=== PATIENT | male | born 1950 | race Caucasian/White ===

== ENCOUNTER 2016-08-31 07:52 | Outpatient (CLI) | payer OTHER | END 2016-08-31 07:53 | disposition home or self-care (01) | DX: I10 Essential (primary) hypertension (principal); E78.5 Hyperlipidemia, unspecified ==

== ENCOUNTER 2016-12-24 15:15 | Outpatient (CLI) | payer OTHER | END 2016-12-24 15:16 | disposition home or self-care (01) | LOC: SC 15:15 | PROVIDERS: ATTEND Internal Medicine Pulmonary Disease | DX: R53.83 Other fatigue (principal) | CPT/HCPCS: 99203; 99212 ==

== ENCOUNTER 2017-01-17 21:06 | Outpatient (CLI) | payer OTHER | END 2017-01-17 21:07 | disposition home or self-care (01) | LOC: SC 21:06 | PROVIDERS: ATTEND Internal Medicine Pulmonary Disease | DX: R09.02 Hypoxemia (principal); R06.83 Snoring | CPT/HCPCS: 95810 ==

== ENCOUNTER 2017-01-31 08:33 | Outpatient (CLI) | payer OTHER | END 2017-01-31 08:34 | disposition home or self-care (01) | LOC: SC 08:33 | PROVIDERS: ATTEND Nurse Practitioner Family | DX: R09.02 Hypoxemia (principal); R06.83 Snoring | CPT/HCPCS: 99212; 99213 ==

== ENCOUNTER 2017-02-21 06:47 | Day surgery (SDC) | payer OTHER ==
[2017-02-21] MEDS ORDERED: LACTATED RINGERS 1,000 ML IV ONE ×2 (07:20→09:18)
[2017-02-21] MEDS ORDERED: MIDAZOLAM 2 MG/2 ML VIAL IVP ONE (08:42)
[2017-02-21] MEDS ORDERED: fentaNYL 100 MCG/2 ML VIAL IVP ONE (08:42)
--- NOTE | 2017-02-21 08:44 | HISTORY & PHYSICAL EXAMINATION ---
HPI - History of Present Illness HPI Comment/Other: Patient is here for screening colonoscopy; last colonoscopy in 2006, normal. High risk for Lake's and is also here for EGD. Current Meds: LIPITOR 10 MG TABS (ATORVASTATIN CALCIUM) Take one tablet by mouth at bedtime COREG 3.125 MG TABS (CARVEDILOL) Take one tablet by mouth twice a day TAMSULOSIN HCL 0.4 MG CAPS (TAMSULOSIN HCL) Take two capsule by mouth daily FINASTERIDE 5 MG TABS (FINASTERIDE) Take one tablet by mouth daily HYDROCHLOROTHIAZIDE 25 MG TABS (HYDROCHLOROTHIAZIDE) Take one tablet by mouth every morning PROTONIX 40 MG TBEC (PANTOPRAZOLE SODIUM) Take one tablet by mouth daily HYDROCODONE-ACETAMINOPHEN 5-325 MG TABS (HYDROCODONE-ACETAMINOPHEN) Take one to two tablets by mouth every six hours as needed for pain ASPIRIN EC 81 MG TBEC (ASPIRIN) Take one tablet by mouth daily Allergies: NKDA Past Medical History: Reviewed history from 02/19/2014 and no changes required: ESSENTIAL HYPERTENSION, BENIGN (ICD-401.1) (FDD93-Z66) HYPERLIPIDEMIA (ICD-272.4) (LVO13-X82.5) FASTING HYPERGLYCEMIA (ICD-790.6) OBESITY NOS (ICD-278.00) (YFH35-B90.9) BREAST MASS, LEFT (ICD-611.72) (SYS79-C28) HEARING LOSS (ICD-389.9) (SLU53-X84.90) SINUSITIS, CHRONIC (ICD-473.9) (XFV64-H64.9) HEADACHE (ICD-784.0) (GXF12-I83) BENIGN PROSTATIC HYPERTROPHY, WITH OBSTRUCTION (ICD-600.01) (WEA40-Y43.1) URTICARIA NEC (ICD-708.8) G E R D (ICD-530.81) (ICO06-G71.9) HIATAL HERNIA (ICD-553.3) (YLO26-Z27.9) Meralgia paresthetica (ICD-355.1) (AHJ73-B52.10) BACK PAIN, THORACIC REGION, CHRONIC (ICD-724.1) (YVZ00-X60.6) BACK PAIN, LUMBAR (ICD-724.2) (FKD98-S31.5) OSTEOARTHRITIS, CERVICAL SPINE (ICD-721.90) (LIZ44-J73.892) Past Surgical History: Reviewed history from 02/09/2014 and no changes required: Amputation of R little finger R shoulder repair Right ankle Right Knee Family History Summary: Reviewed history Last on 10/05/2016 and no changes required:12/14/2016 Father (lo.) - Has a father - Entered On: 02/09/2014 Mother (lo.) - Has a mother - Entered On: 02/09/2014 Mother (lo.) - Has Family History of Other Medical Problems - Diabetes - Entered On: 12/14/2016 General Comments - FH: Mother: CVA Uncle: CVA Social History: Reviewed history from 01/15/2014 and no changes required: Patient is a former smoker. . Risk Factors: Smoked Tobacco Use: Former smoker Cigarettes: Yes -- 2 pack(s) per day, Pack-years: 50 Year quit: 2002 Years Since Last Quit: 15 Smokeless Tobacco Use: Never Passive smoke exposure: no Drug use: no HIV high-risk behavior: no Caffeine use: 3 drinks per day Alcohol use: yes Type: Rare Drinks per day: <1 Exercise: yes Times per week: 7 Type of Exercise: Cardo and wts Seatbelt use: 100 % Sun Exposure: occasionally Family History Risk Factors: Family History of [place] in females < 65 years old: no Family History of [place] in males < 55 years old: no Physical Exam General: Normal appearance with central obesity. Lungs: clear bilaterally to A & P Heart: regular rate and rhythm, S1, S2 without murmurs, rubs, gallops, or clicks Abdomen: bowel sounds positive; abdomen soft and non-tender without masses, organomegaly, or hernias noted Pulses: pulses normal in all 4 extremities Extremities: no clubbing, cyanosis, edema, or deformity noted with normal full range of motion of all joints Cervical Nodes: no significant adenopathy Psych: alert and cooperative; normal mood and affect; normal attention span and concentration Impression & Recommendations: Problem # 1: Screening for colon cancer Will proceed with screening colonoscopy Problem # 2: Screening for Lake's esophagus Will proceed with EGD PMH/PSH - Past Medical History Cardiovascular: positive: Hypertension, High cholesterol Respiratory: positive: None Neuro: positive: None Endocrine/Autoimmune: positive: None GI: positive: GERD : positive: Benign prostate hypertrophy HEENT: positive: None Psych: positive: None Musculoskeletal: positive: Osteoarthritis Derm: positive: None MRSA Hx?: No - Past Surgical History General: positive: Colonoscopy Ortho: positive: Other Social & Family Hx - Social History Does the pt smoke?: No Smoking Status: Never smoker Does the pt drink ETOH?: No ETOH Use: Liquor Does the pt have substance abuse?: No Meds/Allgy - Home Medications Home Medications: Ambulatory Orders Medication Instructions Recorded Confirmed Aspirin [Aspir 81] 81 mg PO DAILY 04/21/13 02/21/17 Carvedilol [Coreg] 3.125 mg PO BID 04/21/13 02/21/17 Dutasteride [Avodart] 0.5 mg PO DAILY 04/21/13 02/21/17 Tamsulosin [Flomax] 0.4 mg PO DAILY 04/21/13 02/21/17 hydroCHLOROthiazide [Hydrodiuril] 25 mg PO DAILY 04/21/13 02/21/17 Pantoprazole Sodium [Protonix] 20 mg PO DAILY 02/20/17 02/21/17 - Allergies Allergies/Adverse Reactions: Allergies Allergy/AdvReac Type Severity Reaction Status Date / Time No Known Drug Allergies Allergy Verified 01/05/16 14:00 Exam - Vital Signs Vital Signs: Vital Signs x48h Temp Pulse Resp BP Pulse Ox 02/21/17 07:06 36 C L 74 20 167/87 H 97
[2017-02-21] MEDS ORDERED: BENZOCAINE/TETRACAINE/BUTAMBEN SPRAY 56 GM TOP ONE (08:49)
[2017-02-21 09:55] VITALS: BP 124/82
== END 2017-02-21 06:48 | disposition home or self-care (01) ==
LOC: SDS 06:47
PROVIDERS: ATTEND Surgery
PROC: 0DB68ZX Excision of Stomach, Via Natural or Artificial Opening Endoscopic, Diagnostic (ICD-10-PCS; 2017-02-21)
PROC: 3E0H8GC Introduction of Other Therapeutic Substance into Lower GI, Via Natural or Artificial Opening Endoscopic (ICD-10-PCS; principal; 2017-02-21 08:15)
PROC: 0DBK8ZX Excision of Ascending Colon, Via Natural or Artificial Opening Endoscopic, Diagnostic (ICD-10-PCS; 2017-02-21 08:15)
DX: Z12.11 Encounter for screening for malignant neoplasm of colon (principal); K64.4 Residual hemorrhoidal skin tags; K63.3 Ulcer of intestine; K21.9 Gastro-esophageal reflux disease without esophagitis; Z87.19 Personal history of other diseases of the digestive system; K44.9 Diaphragmatic hernia without obstruction or gangrene; K63.5 Polyp of colon; I10 Essential (primary) hypertension; E78.5 Hyperlipidemia, unspecified; Z87.891 Personal history of nicotine dependence; Z79.82 Long term (current) use of aspirin
CPT/HCPCS: 43239; 45381; 45385; A9270; J7120

== ENCOUNTER 2017-02-22 08:42 | Outpatient (CLI) | payer OTHER ==
[2017-02-22] MEDS ORDERED: ALBUTEROL NEB 2.5 MG/3 ML INH ONE (10:00)
== END 2017-02-22 08:43 | disposition home or self-care (01) ==
LOC: RT 08:42
PROVIDERS: ATTEND Family Medicine
DX: R06.00 Dyspnea, unspecified (principal)
CPT/HCPCS: 94060; 94729; J7613

== ENCOUNTER 2017-05-09 08:33 | Outpatient (CLI) | payer OTHER, MEDICARE ==
--- NOTE | 2017-05-09 12:25 | XRAY Report ---
TWO-VIEW CHEST: 05/09/2017 CLINICAL INDICATION: Cough. COMPARISON: 01/05/2016 FINDINGS: Frontal and lateral views of the chest demonstrate a normal cardiac silhouette. The lungs remain clear. No effusion or pneumothorax is present. IMPRESSION: NORMAL CHEST, UNCHANGED. JOB #: [id number] EXT JOB #:[id number]
== END 2017-05-09 08:34 | disposition home or self-care (01) ==
LOC: DI 08:33
PROVIDERS: ATTEND Physician Assistant
DX: R05 Cough (principal)
CPT/HCPCS: 71020

== ENCOUNTER 2017-12-30 07:41 | Outpatient (CLI) | payer OTHER, MEDICARE ==
[2017-12-30 13:29] LABS: BASOPHILS % (AUTO) 0.8 %; EOSINOPHILS # (AUTO) 0.2 10^3/uL (0.0-0.7); EOSINOPHILS % (AUTO) 3.6 %; HGB - HEMOGLOBIN 15.2 g/dL (14.0-18.0); LYMPHOCYTES # (AUTO) 1.3 10^3/uL (1.5-3.5); LYMPHOCYTES % (AUTO) 29.5 %; MEAN CORPUSCULAR HEMOGLOBIN 29.1 pg (27.0-31.0); MEAN CORPUSCULAR HGB CONC 34.5 g/dL (32.0-36.0); MEAN CORPUSCULAR VOLUME 84.2 fL (80.0-94.0); MEAN PLATELET VOLUME 8.7 fL (7.4-11.4); MONOCYTES # (AUTO) 0.5 10^3/uL (0.0-1.0); MONOCYTES % (AUTO) 10.4 %; NEUTROPHILS # (AUTO) 2.5 10^3/uL (1.5-6.6); NEUTROPHILS % (AUTO) 55.7 %; PLT - PLATELET COUNT 199 10^3/uL (130-450); RED BLOOD COUNT 5.22 10^6/uL (4.70-6.10); RED CELL DISTRIBUTION WIDTH 13.3 % (12.0-15.0); WHITE BLOOD COUNT 4.5 x10^3/uL (4.8-10.8)
[2017-12-30 13:31] LABS: ALBUMIN 3.9 g/dL (3.2-5.5); ALBUMIN/GLOBULIN RATIO 1.3 (1.0-2.2); ALKALINE PHOSPHATASE 96 IU/L (42-121); ALT ALANINE AMINOTRANSFERASE 35 IU/L (10-60); AST ASPARTATE AMINOTRANSFERASE 32 IU/L (10-42); BILIRUBIN,TOTAL 0.7 mg/dL (0.2-1.0); BUN - BLOOD UREA NITROGEN 17 mg/dL (6-20); CARBON DIOXIDE - CO2 25 mmol/L (21-32); CHLORIDE 101 mmol/L (101-111); CHOL/HDL RATIO 3.6 (<5.0); CHOLESTEROL 145 mg/dL; CREATININE 0.8 mg/dL (0.6-1.2); GFR - MDRD 97 (>89); GLUCOSE 104 mg/dL (70-100); HDL CHOLESTEROL 40 mg/dL; LDL CHOLESTEROL,CALCULATED 71 mg/dL; LDL/HDL RATIO 1.8 (<3.6); SODIUM 138 mmol/L (135-145); TOTAL PROTEIN 6.9 g/dL (6.7-8.2); VLDL CHOLESTEROL 34 mg/dL
[2017-12-30 13:41] LABS: HB2 TOTAL 16.8 g/dL; HEMOGLOBIN A1C 0.7 g/dL
== END 2017-12-30 07:42 | disposition home or self-care (01) ==
LOC: LAB.WCP 07:41
PROVIDERS: ATTEND Family Medicine
DX: I10 Essential (primary) hypertension (principal); E78.5 Hyperlipidemia, unspecified; R73.9 Hyperglycemia, unspecified; Z12.5 Encounter for screening for malignant neoplasm of prostate
CPT/HCPCS: 36415; 80053; 80061; 83036; 83721; 84153; 85025

== ENCOUNTER 2018-03-06 16:42 | Outpatient (CLI) | payer MEDICARE, OTHER ==
--- NOTE | 2018-03-07 08:42 | Ultrasound Report ---
Reason: FLANK PAIN, RIGHT Procedure Date: 03/06/2018 Accession Number: [id number] / [id number] Procedure: US - Retroperitoneal CPT Code: FULL RESULT: EXAM: RENAL ULTRASOUND EXAM DATE: 03/06/2018 06:00 PM. CLINICAL HISTORY: Flank pain, right. COMPARISON: No ultrasound comparison. CT abdomen 04/26/2011. MRI abdomen 05/04/2011. TECHNIQUE: Real-time scanning was performed with static images obtained. FINDINGS: Right Kidney: 12.6 x 4.9 x 5.7 cm. No definite mass or hydronephrosis. 2 tiny echogenic cortical foci demonstrate no definite distal shadowing. These could be artifactual. Small nonobstructing calculi are not definitely excluded. Left Kidney: 12.8 x 5.8 x 5.7 cm. Normal echotexture with no stones, contour-deforming masses, or hydronephrosis. Bladder: Bilateral jets seen. The prevoid bladder volume was 379 cc. The postvoid bladder volume was 161 cc. Other: Well-defined mildly hypoechoic 3.1 x 2.5 x 2.9 cm mass within the posterior, inferior right hepatic lobe demonstrates substantial internal vascularity. This corresponds to the site of a 2.4 x 2.8 x 2.4 cm (by my measurements) enhancing mass on the prior CT and MRI exams. IMPRESSION: 1. 2 tiny echogenic foci within the right kidney could represent artifact. Nonobstructing calculi not excluded. 2. Otherwise, no sonographic abnormality of the kidneys demonstrated. 3. Postvoid bladder residual of 161 cc. 4. 3.1 cm vascular right hepatic lobe mass corresponds with an enhancing 2.8 cm mass demonstrated on CT and MRI in 2010. The MRI described this as most likely representing a flash-filling hemangioma. The ultrasound appearance is nonspecific. However, given the only mild progression compared with 2011, this does favor a benign etiology. Follow-up, as clinically indicated. RADIA
== END 2018-03-06 16:43 | disposition home or self-care (01) ==
LOC: DI 16:42
PROVIDERS: ATTEND Physician Assistant Medical
DX: R10.9 Unspecified abdominal pain (principal); R16.0 Hepatomegaly, not elsewhere classified
CPT/HCPCS: 76770

== ENCOUNTER 2018-09-20 15:21 | Outpatient (CLI) | payer MEDICARE, OTHER ==
--- NOTE | 2018-09-22 10:16 | Ultrasound Report ---
Reason: LIPOMA Procedure Date: 09/20/2018 Accession Number: [id number] / [id number] Procedure: US - Ext Limited Non Vascular CPT Code: FULL RESULT: EXAM: RIGHT SUPERFICIAL ABDOMINAL/THORACIC WALL ULTRASOUND - LIMITED EXAM DATE: 09/20/2018 04:13 PM. CLINICAL HISTORY: Lipoma. COMPARISON: None. TECHNIQUE: Real-time scanning was performed with static images obtained. FINDINGS: Along the right lateral rib cage is a solid well-demarcated nonvascular mass with similar echotexture to background subcutaneous adipose tissue which is wider than tall and measures 4.1 x 1.9 x 4.9 cm and is reported by the career placement specialist to be noncompressible. IMPRESSION: Suspect lipoma. Correlate to physical examination for "rubbery" mass. RADIA
== END 2018-09-20 15:22 | disposition home or self-care (01) ==
LOC: DI 15:21
PROVIDERS: ATTEND Physician Assistant
DX: D17.4 Benign lipomatous neoplasm of intrathoracic organs (principal)
CPT/HCPCS: 76882

== ENCOUNTER 2019-01-26 08:00 | Outpatient (CLI) | payer MEDICARE, OTHER ==
[2019-01-26 12:13] LABS: BASOPHILS % (AUTO) 0.9 %; EOSINOPHILS # (AUTO) 0.2 10^3/uL (0.0-0.7); EOSINOPHILS % (AUTO) 4.2 %; HGB - HEMOGLOBIN 14.8 g/dL (14.0-18.0); LYMPHOCYTES # (AUTO) 1.4 10^3/uL (1.5-3.5); LYMPHOCYTES % (AUTO) 31.9 %; MEAN CORPUSCULAR HEMOGLOBIN 28.8 pg (27.0-31.0); MEAN CORPUSCULAR HGB CONC 33.3 g/dL (32.0-36.0); MEAN CORPUSCULAR VOLUME 86.4 fL (80.0-94.0); MEAN PLATELET VOLUME 10.5 fL (7.4-11.4); MONOCYTES # (AUTO) 0.5 10^3/uL (0.0-1.0); MONOCYTES % (AUTO) 10.7 %; NEUTROPHILS # (AUTO) 2.2 10^3/uL (1.5-6.6); NEUTROPHILS % (AUTO) 51.8 %; PLT - PLATELET COUNT 194 10^3/uL (130-450); RED BLOOD COUNT 5.14 10^6/uL (4.70-6.10); RED CELL DISTRIBUTION WIDTH 13.2 % (12.0-15.0); WHITE BLOOD COUNT 4.3 x10^3/uL (4.8-10.8)
[2019-01-26 12:45] LABS: ALBUMIN 3.8 g/dL (3.2-5.5); ALBUMIN/GLOBULIN RATIO 1.2 (1.0-2.2); ALKALINE PHOSPHATASE 88 IU/L (42-121); ALT ALANINE AMINOTRANSFERASE 32 IU/L (10-60); AST ASPARTATE AMINOTRANSFERASE 28 IU/L (10-42); BILIRUBIN,TOTAL 0.8 mg/dL (0.2-1.0); BUN - BLOOD UREA NITROGEN 20 mg/dL (6-20); CALCIUM 9.2 mg/dL (8.5-10.3); CARBON DIOXIDE - CO2 25 mmol/L (21-32); CHLORIDE 102 mmol/L (101-111); CHOL/HDL RATIO 3.7 (<5.0); CHOLESTEROL 118 mg/dL; CREATININE 0.9 mg/dL (0.6-1.2); GFR - MDRD 84 (>89); GLUCOSE 107 mg/dL (70-100); HDL CHOLESTEROL 32 mg/dL; LDL CHOLESTEROL,CALCULATED 63 mg/dL; SODIUM 139 mmol/L (135-145); TOTAL PROTEIN 6.9 g/dL (6.7-8.2); VLDL CHOLESTEROL 23 mg/dL
[2019-01-26 12:52] LABS: HB2 TOTAL 15.9 g/dL; HEMOGLOBIN A1C 0.65 g/dL; HEMOGLOBIN A1C % 5.9 % (4.6-6.2)
== END 2019-01-26 23:59 | disposition home or self-care (01) ==
LOC: LAB.WCP 08:00
PROVIDERS: ATTEND Family Medicine
DX: I10 Essential (primary) hypertension (principal); E78.5 Hyperlipidemia, unspecified; R73.01 Impaired fasting glucose; Z12.5 Encounter for screening for malignant neoplasm of prostate
CPT/HCPCS: 36415; 80061; 83036; G0103; 80053; 83721; 84153; 84443; 85025

== ENCOUNTER 2019-02-05 08:00 | Outpatient (CLI) | payer MEDICARE, OTHER ==
[2019-02-05 12:30] LABS: BASOPHILS # (AUTO) 0.1 10^3/uL (0.0-0.1); BASOPHILS % (AUTO) 1.1 %; EOSINOPHILS # (AUTO) 0.2 10^3/uL (0.0-0.7); EOSINOPHILS % (AUTO) 3.4 %; LYMPHOCYTES # (AUTO) 1.4 10^3/uL (1.5-3.5); LYMPHOCYTES % (AUTO) 28.5 %; MEAN CORPUSCULAR HEMOGLOBIN 28.9 pg (27.0-31.0); MEAN CORPUSCULAR HGB CONC 33.2 g/dL (32.0-36.0); MEAN CORPUSCULAR VOLUME 87.2 fL (80.0-94.0); MEAN PLATELET VOLUME 10.2 fL (7.4-11.4); MONOCYTES # (AUTO) 0.5 10^3/uL (0.0-1.0); NEUTROPHILS # (AUTO) 2.6 10^3/uL (1.5-6.6); NEUTROPHILS % (AUTO) 55.4 %; PLT - PLATELET COUNT 223 10^3/uL (130-450); RED BLOOD COUNT 5.53 10^6/uL (4.70-6.10); RED CELL DISTRIBUTION WIDTH 12.9 % (12.0-15.0); WHITE BLOOD COUNT 4.7 x10^3/uL (4.8-10.8)
[2019-02-05 12:40] LABS: ALBUMIN/GLOBULIN RATIO 1.3 (1.0-2.2); ALKALINE PHOSPHATASE 89 IU/L (42-121); ALT ALANINE AMINOTRANSFERASE 37 IU/L (10-60); AST ASPARTATE AMINOTRANSFERASE 28 IU/L (10-42); BILIRUBIN,TOTAL 0.8 mg/dL (0.2-1.0); BUN - BLOOD UREA NITROGEN 18 mg/dL (6-20); CARBON DIOXIDE - CO2 28 mmol/L (21-32); CHLORIDE 104 mmol/L (101-111); CHOL/HDL RATIO 4.1 (<5.0); CHOLESTEROL 130 mg/dL; CREATININE 0.9 mg/dL (0.6-1.2); GFR - MDRD 84 (>89); GLUCOSE 119 mg/dL (70-100); HDL CHOLESTEROL 32 mg/dL; LDL CHOLESTEROL,CALCULATED 67 mg/dL; LDL/HDL RATIO 2.1 (<3.6); SODIUM 140 mmol/L (135-145); TOTAL PROTEIN 7.2 g/dL (6.7-8.2); VLDL CHOLESTEROL 31 mg/dL
== END 2019-02-05 23:59 | disposition home or self-care (01) ==
LOC: LAB.WCP 08:00
PROVIDERS: ATTEND Family Medicine
DX: I10 Essential (primary) hypertension (principal); E78.5 Hyperlipidemia, unspecified
CPT/HCPCS: 36415; 80053; 80061; 83721; 84443; 85025

== ENCOUNTER 2019-04-06 08:00 | Outpatient (CLI) | payer MEDICARE, OTHER ==
[2019-04-06 12:55] LABS: CALCIUM 9.2 mg/dL (8.5-10.3); CREATININE 0.9 mg/dL (0.6-1.2)
== END 2019-04-06 08:01 | disposition home or self-care (01) ==
LOC: LAB.WCP 08:00
PROVIDERS: ATTEND Nurse Practitioner Family
DX: E87.6 Hypokalemia (principal)
CPT/HCPCS: 36415; 80048

== ENCOUNTER 2019-09-16 12:32 | Outpatient (CLI) | payer MEDICARE, OTHER ==
--- NOTE | 2019-09-16 15:17 | CT Report ---
Reason: LT FOOT PAIN Procedure Date: 09/16/2019 Accession Number: [id number] / [id number] Procedure: CT - LOWER EXTREMITY WO - LT CPT Code: Final Report FULL RESULT: EXAM: LEFT FOOT CT WITHOUT CONTRAST EXAM DATE: 09/16/2019 12:58 PM. CLINICAL HISTORY: Left foot pain with the bases of the third through fifth metatarsophalangeal joints. COMPARISON: None. TECHNIQUE: Thin-section axial images were acquired of the foot without contrast. Post-processing: Coronal and sagittal reformats. Other: None. In accordance with CT protocol optimization, one or more of the following dose reduction techniques were utilized for this exam: automated exposure control, adjustment of mA and/or KV based on patient size, or use of iterative reconstructive technique. FINDINGS: Bones: No fractures. A small plantar calcaneal spur is present. Joints: The joint spaces are preserved. No calcified loose bodies. No large effusion. Musculature: Normal. No fatty atrophy. Other: Calcific enthesopathy at the Achilles insertion. IMPRESSION: Normal foot CT. RADIA
== END 2019-09-16 12:33 | disposition home or self-care (01) ==
LOC: DI 12:32
PROVIDERS: ATTEND Physician Assistant
DX: M79.672 Pain in left foot (principal)

== ENCOUNTER 2020-02-17 07:18 | Outpatient (CLI) | payer MEDICARE, OTHER ==
[2020-02-17 12:20] LABS: BASOPHILS % (AUTO) 0.8 %; EOSINOPHILS # (AUTO) 0.2 10^3/uL (0.0-0.7); EOSINOPHILS % (AUTO) 2.8 %; HGB - HEMOGLOBIN 15.7 g/dL (14.0-18.0); LYMPHOCYTES # (AUTO) 1.4 10^3/uL (1.5-3.5); LYMPHOCYTES % (AUTO) 26.1 %; MEAN CORPUSCULAR HEMOGLOBIN 28.4 pg (27.0-31.0); MEAN CORPUSCULAR HGB CONC 32.4 g/dL (32.0-36.0); MEAN CORPUSCULAR VOLUME 87.5 fL (80.0-94.0); MEAN PLATELET VOLUME 10.4 fL (7.4-11.4); MONOCYTES # (AUTO) 0.5 10^3/uL (0.0-1.0); MONOCYTES % (AUTO) 8.8 %; NEUTROPHILS # (AUTO) 3.3 10^3/uL (1.5-6.6); NEUTROPHILS % (AUTO) 61.1 %; PLT - PLATELET COUNT 203 10^3/uL (130-450); RED BLOOD COUNT 5.53 10^6/uL (4.70-6.10); RED CELL DISTRIBUTION WIDTH 12.3 % (12.0-15.0); WHITE BLOOD COUNT 5.3 x10^3/uL (4.8-10.8)
[2020-02-17 12:47] LABS: ALBUMIN/GLOBULIN RATIO 1.3 (1.0-2.2); ALKALINE PHOSPHATASE 91 IU/L (42-121); ALT ALANINE AMINOTRANSFERASE 33 IU/L (10-60); AST ASPARTATE AMINOTRANSFERASE 26 IU/L (10-42); BILIRUBIN,TOTAL 0.7 mg/dL (0.2-1.0); BUN - BLOOD UREA NITROGEN 24 mg/dL (6-20); CALCIUM 8.9 mg/dL (8.5-10.3); CARBON DIOXIDE - CO2 28 mmol/L (21-32); CHLORIDE 101 mmol/L (101-111); CHOL/HDL RATIO 3.9 (<5.0); CHOLESTEROL 126 mg/dL; CREATININE 0.9 mg/dL (0.6-1.2); GLUCOSE 119 mg/dL (70-100); HDL CHOLESTEROL 32 mg/dL; LDL CHOLESTEROL,CALCULATED 72 mg/dL; LDL/HDL RATIO 2.3 (<3.6); SODIUM 136 mmol/L (135-145); TOTAL PROTEIN 7.1 g/dL (6.7-8.2); VLDL CHOLESTEROL 22 mg/dL
[2020-02-17 12:52] LABS: HEMOGLOBIN A1c% 5.9 % (4.27-6.07)
== END 2020-02-17 23:59 | disposition home or self-care (01) ==
LOC: LAB.WCP 07:18
PROVIDERS: ATTEND Family Medicine
DX: I10 Essential (primary) hypertension (principal); R73.01 Impaired fasting glucose; E78.5 Hyperlipidemia, unspecified; Z12.5 Encounter for screening for malignant neoplasm of prostate
CPT/HCPCS: 36415; 80053; 80061; 83036; 84443; 85025; G0103; 83721; 84153

== ENCOUNTER 2020-05-31 08:00 | Outpatient (CLI) | payer MEDICARE, OTHER | END 2020-05-31 23:59 | LOC: LAB.N 08:00 | PROVIDERS: ATTEND Physician Assistant Medical | DX: J20.8 Acute bronchitis due to other specified organisms (principal) ==

== ENCOUNTER 2020-07-06 07:47 | Outpatient (CLI) | payer MEDICARE, OTHER ==
[2020-07-06] MEDS ORDERED: IOVERSOL 320 100 ML VIAL IVP ONE ×2 (08:39→09:02)
--- NOTE | 2020-07-06 09:00 | CT Report ---
PROCEDURE: ANGIO NECK W INDICATIONS: VISUAL CHANGES, DIZZINESS, HTN, HYPERLIPIDEMIA CONTRAST: IV CONTRAST: Optiray 320 ml: 80 PO CONTRAST: *NO PO CONTRAST TECHNIQUE: After the administration of intravenous contrast, 1.5 mm axial sections acquired from the aortic arch to the [place]. Coronal 3-D maximum intensity projection (MIP) and/or volume rendering ref ormats were then performed. For radiation dose reduction, the following was used: automated exposur e control, adjustment of mA and/or kV according to patient size. COMPARISON: None. FINDINGS: Image quality: Excellent. Carotid system: The great vessels demonstrate a bovine arch anatomy as they arise from the aortic ar ch. The origins of the common carotid arteries appear patent. The common carotid arteries demonstra te normal calibers and courses. The bifurcation regions appear normal bilaterally. The internal car otid arteries demonstrate normal caliber and course. Mild carotid bifurcation region calcifications. Posterior circulation: The origins of the vertebral arteries appear patent. The left vertebral arter y is dominant. The right vertebral artery is somewhat diminutive. No stenoses or filling defects or o cclusions. They join to form a normal appearing basilar artery. Soft tissues: Visualized neck soft tissues demonstrate no suspicious abnormalities. The thyroid gla nd is normal in size. Bones: No suspicious bony lesions. Visualized cervical spine appears normally aligned. IMPRESSION: 1. Mild atherosclerotic calcifications. 2. Otherwise unremarkable CTA neck. Widely patent internal carotids. The estimate of stenosis included in the report of the imaging study was calculated using the NASCET method Reviewed by: Siva Potter MD on 07/06/2020 8:59 AM PST Approved by: Siva Potter MD on 07/06/2020 8:59 AM PST Station ID: [id number]
--- NOTE | 2020-07-06 09:33 | CT Report ---
PROCEDURE: ANGIO HEAD W/WO INDICATIONS: VISUAL CHANGES, DIZZINESS, HTN, HYPERLIPIDEMIA CONTRAST: IV CONTRAST: Optiray 320 ml: 80 PO CONTRAST: *NO PO CONTRAST TECHNIQUE: Precontrast 4.5 mm thick angled axial sections acquired from the foramen magnum to the vertex. Afte r the administration of intravenous contrast, 1 mm thick sections acquired through the [place] of [place] is. Postcontrast 4.5 mm thick sections then re-acquired from the foramen magnum to the vertex. 3-di mensional srbghtr-rpvmzalpp-egzznhjyne (MIP) and/or volume rendering reformats were acquired of the c entral intracranial vasculature. For radiation dose reduction, the following was used: automated ex posure control, adjustment of mA and/or kV according to patient size. COMPARISON: CTA neck from the same date FINDINGS: Image quality: Excellent. Anterior circulation: Intracranial internal carotid arteries are normal in size and flow. The flow within the paired anterior cerebral arteries is normal and symmetric. The flow within the middle cer ebral arteries is normal and symmetric. The anterior communicating artery is seen. No aneurysms are seen. Posterior circulation: The left vertebral artery is dominant. The right vertebral artery is diminutiv e. They join to form a normal appearing basilar artery. Flow within the posterior cerebral arteries is normal and symmetric. No aneurysms are seen. CSF spaces: Ventricles are normal in size and shape. Basal cisterns are patent. No extra-axial flu id collections. Brain: No midline shift. No intracranial bleeds or masses. Staley-white matter interface appears int act. Age-related volume loss and mild small vessel ischemic change. Skull and face: Calvarium and facial bones appear intact, without suspicious lesions. Sinuses: Visualized sinuses and mastoids are clear. IMPRESSION: 1. Age-related volume loss and mild small vessel ischemic change. 2. No evidence acute stroke, hemorrhage, or mass. 3. Unremarkable CTA head. No stenosis, occlusion, aneurysm, or filling defect. Reviewed by: Siva Potter MD on 07/06/2020 9:32 AM [facility] Approved by: Siva Potter MD on 07/06/2020 9:32 AM PST Station ID: [id number]
== END 2020-07-06 07:48 | disposition home or self-care (01) ==
LOC: LAB 07:47
PROVIDERS: ATTEND Nurse Practitioner Family
DX: H53.9 Unspecified visual disturbance (principal); R42 Dizziness and giddiness; I10 Essential (primary) hypertension; E78.5 Hyperlipidemia, unspecified
CPT/HCPCS: 70496; 70498; Q9967

== ENCOUNTER 2020-07-06 07:56 | Outpatient (CLI) | payer MEDICARE, OTHER ==
[2020-07-06 08:25] LABS: CALCIUM 9.4 mg/dL (8.5-10.3); CREATININE 0.9 mg/dL (0.6-1.2)
== END 2020-07-06 07:57 | disposition home or self-care (01) ==
LOC: LAB 07:56
PROVIDERS: ATTEND Family Medicine
DX: H53.9 Unspecified visual disturbance (principal); R73.01 Impaired fasting glucose; I10 Essential (primary) hypertension; R42 Dizziness and giddiness; E78.5 Hyperlipidemia, unspecified
CPT/HCPCS: 36415; 70496; 70498; 80048; Q9967

== ENCOUNTER 2021-01-09 17:11 | Outpatient (CLI) | payer MEDICARE, OTHER ==
[2021-01-09 20:47] LABS: BASOPHILS # (AUTO) 0.1 10^3/uL (0.0-0.1); BASOPHILS % (AUTO) 1.1 %; EOSINOPHILS # (AUTO) 0.1 10^3/uL (0.0-0.7); EOSINOPHILS % (AUTO) 2.5 %; HCT - HEMATOCRIT 47.9 % (42.0-52.0); LYMPHOCYTES # (AUTO) 1.8 10^3/uL (1.5-3.5); LYMPHOCYTES % (AUTO) 32.3 %; MEAN CORPUSCULAR HEMOGLOBIN 29.3 pg (27.0-31.0); MEAN CORPUSCULAR HGB CONC 33.4 g/dL (32.0-36.0); MEAN CORPUSCULAR VOLUME 87.6 fL (80.0-94.0); MEAN PLATELET VOLUME 10.6 fL (7.4-11.4); MONOCYTES # (AUTO) 0.5 10^3/uL (0.0-1.0); MONOCYTES % (AUTO) 9.4 %; NEUTROPHILS % (AUTO) 54.2 %; PLT - PLATELET COUNT 219 10^3/uL (130-450); RED BLOOD COUNT 5.47 10^6/uL (4.70-6.10); RED CELL DISTRIBUTION WIDTH 12.3 % (12.0-15.0); WHITE BLOOD COUNT 5.5 x10^3/uL (4.8-10.8)
[2021-01-09 20:49] LABS: ALBUMIN 4.3 g/dL (3.2-5.5); ALBUMIN/GLOBULIN RATIO 1.4 (1.0-2.2); BILIRUBIN,TOTAL 0.4 mg/dL (0.2-1.0); CALCIUM 9.3 mg/dL (8.5-10.3); CREATININE 0.9 mg/dL (0.6-1.2); POTASSIUM 3.8 mmol/L (3.5-5.0); TOTAL PROTEIN 7.3 g/dL (6.7-8.2)
== END 2021-01-09 23:59 | disposition home or self-care (01) ==
LOC: LAB.N 17:11
PROVIDERS: ATTEND Physician Assistant Medical
DX: R10.11 Right upper quadrant pain (principal)
CPT/HCPCS: 36415; 80053; 83690; 85025

== ENCOUNTER 2021-02-01 07:15 | Outpatient (CLI) | payer MEDICARE, OTHER ==
--- NOTE | 2021-02-01 15:04 | Ultrasound Report ---
PROCEDURE: Abdomen Limited INDICATIONS: RUQ PAIN TECHNIQUE: Real-time focused scanning was performed of the abdomen, with image documentation. COMPARISON: None. FINDINGS: Liver is normal in size. Heterogeneously echogenic liver parenchyma is seen. There is a 2.7 x 2.6 x 2 cm heterogeneously hypoechoic and solid appearing lesion involving inferior right hepatic lobe and m easures 2.7 x 2.6 x 2 cm in size. Increased internal vascularity is seen. 2.6 x 2.3 x 2 cm hypoechoic lesion is noted in posterior right hepatic lobe. Similar hypoechoic structure is also noted in the i nferior right hepatic lobe measures 1.2 x 1.2 x 1.1 cm in size. No internal vascularity is seen. 1.4 x 1.3 x 1.4 cm septated cyst is noted in superior aspect of right hepatic lobe. 1.5 x 1.4 x 1 cm simp le cyst is seen in mid right hepatic lobe adjacent to gallbladder fossa. There is no gallstone. No gallbladder wall thickening or pericholecystic fluid. No sonographic [place] 's sign. There is no intrahepatic biliary ductal dilatation. Common bile duct measures 2.8 mm in diameter and is within normal limits. Visualized portion of pancreas shows no gross abnormality. Right kidney measures 13.3 cm in length. There is no hydronephrosis or solid appearing renal lesion. Incidentally noted of 3.3 x 2.5 x 1.1 cm slightly hyperechoic structure in epigastric anterior abdomi nal wall subcutaneous soft tissue without significant internal vascularity and likely represent a lip mariann. IMPRESSION: 1. 2.7 x 2.6 x 2 cm hypervascular solid lesion in inferior right hepatic lobe as described above, con cerning for malignant process. Dedicated MRI of abdomen without and with contrast can be done for fur ther evaluation of this region. 2. Likely hemangiomas seen in right hepatic lobe as above. 3. 2 hepatic cysts as above. 4. Normal-appearing gallbladder. No biliary ductal dilatation. 5. Likely 3.3 x 2.5 x 1.1 cm lipoma in the epigastric region of anterior abdominal wall. Reviewed by: Rocky Arechiga MD on 02/01/2021 3:03 PM PDT Approved by: Rocky Arechiga MD on 02/01/2021 3:03 PM PDT Station ID: [id number]
== END 2021-02-01 07:16 | disposition home or self-care (01) ==
LOC: DI 07:15
PROVIDERS: ATTEND Physician Assistant Medical
DX: R10.11 Right upper quadrant pain (principal); R93.2 Abnormal findings on diagnostic imaging of liver and biliary tract; K76.89 Other specified diseases of liver; R93.5 Abnormal findings on diagnostic imaging of other abdominal regions, including retroperitoneum

== ENCOUNTER 2021-02-06 10:00 | Outpatient (CLI) | payer MEDICARE, OTHER ==
[2021-02-06] MEDS ORDERED: GADOBUTROL 15 MMOL/15 ML VIAL ONE (11:10)
--- NOTE | 2021-02-06 13:09 | MRI Report ---
PROCEDURE: Abdomen W/WO INDICATIONS: Right upper quadrant pain, history of reported liver abnormality seen on ultrasound. CONTRAST: IV CONTRAST: Gadavist ml: 11.5 TECHNIQUE: Coronal ultra fast SE, axial 2D spoiled GE in- and [id number]; axial breath-hold T2 fast SE. Dynam ic axial ultra fast GE during the administration of contrast; post-contrast coronal ultra fast GE or 2D spoiled GE with fat saturation from the hepatic dome to the iliac crests. Optional diffusion weig hted imaging and ADC may be performed. COMPARISON: Abdominal ultrasound 02/01/2021 reviewed. FINDINGS: Image quality: Excellent. Lung bases: No basal pleural effusions. Heart size is normal. Solid organs: Liver and spleen are normal in size and enhancement except for presence of 2 separate structures. At the posterior subcapsular right hepatic lobe right posterior hepatic segment where mil dly heterogeneous contrast enhancement is present, with prominent elevated enhancement in the earlies t phases of contrast imaging. This does not have imaging characteristics diagnostic of hemangioma. No additional liver lesion elsewhere is seen.. Gallbladder Biliary system is non dilated. Pancre as is normal in morphology. No adrenal nodules. Both kidneys demonstrate normal size and enhancemen t, without hydronephrosis. Nodes and vessels: No retroperitoneal or mesenteric adenopathy by size criteria. Aorta and inferior vena cava are normal in size. Bowel and peritoneum: Unenhanced bowel loops are normal in caliber. No free fluid. Bones and soft tissues: No ventral hernias. Bone marrow is normal in overall signal. IMPRESSION: The mid liver level posterior medial enhancing hepatic 2 cm lesion has imaging characteristics diagno stic of a benign hemangioma. The inferior tip of the right posterior hepatic segment contains a potentially malignant mass measuri ng up to 3.1 cm, with early dense contrast enhancement. A nuclear medicine PET/CT scan would be helpf ul in further characterization of this lesion and to assist in establishing whether there are benign or malignant type isotope uptake associated. This structure isn't accurately assessed by ultrasound a nd could be further assessed sequentially over time by targeted single organ sonographic evaluations. Reviewed by: Margarito Pack MD on 02/06/2021 1:07 PM PDT Approved by: Margarito Pack MD on 02/06/2021 1:07 PM PDT Station ID: [id number]
[2021-02-06] MEDS ORDERED: GADOBUTROL 15 MMOL/15 ML VIAL IVP ONE (16:32)
== END 2021-02-06 10:01 | disposition home or self-care (01) ==
LOC: DI 10:00
PROVIDERS: ATTEND Physician Assistant Medical
DX: K76.9 Liver disease, unspecified (principal); R16.0 Hepatomegaly, not elsewhere classified
CPT/HCPCS: 74183; A9585

== ENCOUNTER → 2021-02-22 | Outpatient (CLI) | payer MEDICARE, OTHER | LOC: LAB.N 08:00 | PROVIDERS: ATTEND Family Medicine | DX: R10.9 Unspecified abdominal pain (principal) | CPT/HCPCS: 87077; 87086 ==

== ENCOUNTER 2021-03-14 07:06 | Outpatient (CLI) | payer MEDICARE, OTHER ==
[2021-03-14 11:38] LABS: BASOPHILS # (AUTO) 0.1 10^3/uL (0.0-0.1); BASOPHILS % (AUTO) 1.4 %; EOSINOPHILS # (AUTO) 0.1 10^3/uL (0.0-0.7); EOSINOPHILS % (AUTO) 3.1 %; HGB - HEMOGLOBIN 16.2 g/dL (14.0-18.0); LYMPHOCYTES # (AUTO) 1.3 10^3/uL (1.5-3.5); LYMPHOCYTES % (AUTO) 30.5 %; MEAN CORPUSCULAR HGB CONC 33.8 g/dL (32.0-36.0); MEAN PLATELET VOLUME 10.5 fL (7.4-11.4); MONOCYTES # (AUTO) 0.4 10^3/uL (0.0-1.0); MONOCYTES % (AUTO) 9.4 %; NEUTROPHILS # (AUTO) 2.3 10^3/uL (1.5-6.6); NEUTROPHILS % (AUTO) 55.1 %; PLT - PLATELET COUNT 214 10^3/uL (130-450); RED BLOOD COUNT 5.58 10^6/uL (4.70-6.10); RED CELL DISTRIBUTION WIDTH 12.3 % (12.0-15.0); WHITE BLOOD COUNT 4.2 x10^3/uL (4.8-10.8)
[2021-03-14 11:57] LABS: ALBUMIN/GLOBULIN RATIO 1.3 (1.0-2.2); ALKALINE PHOSPHATASE 96 IU/L (42-121); ALT ALANINE AMINOTRANSFERASE 32 IU/L (10-60); AST ASPARTATE AMINOTRANSFERASE 23 IU/L (10-42); BILIRUBIN,TOTAL 0.7 mg/dL (0.2-1.0); BUN - BLOOD UREA NITROGEN 22 mg/dL (6-20); CALCIUM 9.1 mg/dL (8.5-10.3); CARBON DIOXIDE - CO2 30 mmol/L (21-32); CHLORIDE 99 mmol/L (101-111); CHOL/HDL RATIO 4.7 (<5.0); CHOLESTEROL 156 mg/dL; CREATININE 0.9 mg/dL (0.6-1.2); GFR - MDRD 84 (>89); GLUCOSE 107 mg/dL (70-100); HDL CHOLESTEROL 33 mg/dL; LDL CHOLESTEROL,CALCULATED 91 mg/dL; LDL/HDL RATIO 2.8 (<3.6); POTASSIUM 3.7 mmol/L (3.5-5.0); SODIUM 137 mmol/L (135-145); TOTAL PROTEIN 7.1 g/dL (6.7-8.2); TRIGLYCERIDES 162 mg/dL; VLDL CHOLESTEROL 32 mg/dL
[2021-03-14 12:08] LABS: THYROID STIMULATING HORMONE 2.42 uIU/mL (0.34-5.60)
== END 2021-03-14 07:07 | disposition home or self-care (01) ==
LOC: LAB.N 07:06
PROVIDERS: ATTEND Family Medicine
DX: E87.6 Hypokalemia (principal); I10 Essential (primary) hypertension; E78.5 Hyperlipidemia, unspecified; R10.9 Unspecified abdominal pain
CPT/HCPCS: 36415; 80053; 80061; 83721; 84443; 85025; 87077; 87086

== ENCOUNTER 2022-02-14 07:15 | Outpatient (CLI) | payer MEDICARE, OTHER ==
[2022-02-14 12:49] LABS: BASOPHILS # (AUTO) 0.1 10^3/uL (0.0-0.1); BASOPHILS % (AUTO) 1.2 %; EOSINOPHILS # (AUTO) 0.2 10^3/uL (0.0-0.7); EOSINOPHILS % (AUTO) 3.9 %; HCT - HEMATOCRIT 47.5 % (42.0-52.0); HGB - HEMOGLOBIN 16.3 g/dL (14.0-18.0); LYMPHOCYTES # (AUTO) 1.4 10^3/uL (1.5-3.5); LYMPHOCYTES % (AUTO) 27.8 %; MEAN CORPUSCULAR HEMOGLOBIN 29.4 pg (27.0-31.0); MEAN CORPUSCULAR HGB CONC 34.3 g/dL (32.0-36.0); MEAN CORPUSCULAR VOLUME 85.7 fL (80.0-94.0); MEAN PLATELET VOLUME 10.9 fL (7.4-11.4); MONOCYTES # (AUTO) 0.6 10^3/uL (0.0-1.0); MONOCYTES % (AUTO) 11.6 %; NEUTROPHILS # (AUTO) 2.7 10^3/uL (1.5-6.6); NEUTROPHILS % (AUTO) 54.9 %; PLT - PLATELET COUNT 177 10^3/uL (130-450); RED BLOOD COUNT 5.54 10^6/uL (4.70-6.10); RED CELL DISTRIBUTION WIDTH 12.6 % (12.0-15.0); WHITE BLOOD COUNT 4.9 x10^3/uL (4.8-10.8)
[2022-02-14 14:00] LABS: ALBUMIN 4.1 g/dL (3.2-5.5); ALBUMIN/GLOBULIN RATIO 1.3 (1.0-2.2); ALKALINE PHOSPHATASE 92 IU/L (42-121); ALT ALANINE AMINOTRANSFERASE 39 IU/L (10-60); AST ASPARTATE AMINOTRANSFERASE 25 IU/L (10-42); BILIRUBIN,TOTAL 0.7 mg/dL (0.2-1.0); BUN - BLOOD UREA NITROGEN 18 mg/dL (6-20); CALCIUM 9.3 mg/dL (8.5-10.3); CARBON DIOXIDE - CO2 32 mmol/L (21-32); CHLORIDE 98 mmol/L (101-111); CHOL/HDL RATIO 4.2 (<5.0); CHOLESTEROL 163 mg/dL; GFR - MDRD 74 (>89); GLUCOSE 110 mg/dL (70-100); HDL CHOLESTEROL 39 mg/dL; LDL CHOLESTEROL,CALCULATED 83 mg/dL; LDL/HDL RATIO 2.1 (<3.6); POTASSIUM 3.7 mmol/L (3.5-5.0); SODIUM 138 mmol/L (135-145); TOTAL PROTEIN 7.3 g/dL (6.7-8.2); TRIGLYCERIDES 203 mg/dL; VLDL CHOLESTEROL 41 mg/dL
== END 2022-02-14 07:16 | disposition home or self-care (01) ==
LOC: LAB.N 07:15
PROVIDERS: ATTEND Nurse Practitioner Family
DX: I10 Essential (primary) hypertension (principal); Z12.5 Encounter for screening for malignant neoplasm of prostate; E78.5 Hyperlipidemia, unspecified; N40.1 Benign prostatic hyperplasia with lower urinary tract symptoms; N13.8 Other obstructive and reflux uropathy
CPT/HCPCS: 36415; 80053; 80061; 83721; 84153; 85025

== ENCOUNTER 2022-02-28 08:34 | Outpatient (CLI) | payer MEDICARE, OTHER ==
--- NOTE | 2022-02-28 11:05 | CT Report ---
PROCEDURE: Low Dose Lung Cancer Screen INDICATIONS: HIST OF SMOKING TECHNIQUE: Noncontrast low-dose axial images were acquired from the pulmonary apices to the posterior costophren ic angles. Multiplanar MIP reformats were then reconstructed. For radiation dose reduction, the follo wing was used: automated exposure control, adjustment of mA and/or kV according to patient size. COMPARISON: None. FINDINGS: Image quality: Excellent. Lungs and pleura: No acute airspace opacities. No pleural effusion or pneumothorax. No pulmonary nod ules. Mediastinum: Heart size is normal. No pericardial effusion. No mediastinal adenopathy by size crit eria. Thoracic aorta and central pulmonary arteries are normal in size. Esophagus is normal in alton amilcar. No hiatal hernia. Bones and chest wall: No suspicious bony lesions. A Schmorl's node is present at the superior T11 e ndplate. There is moderate degenerative change throughout the thoracic spine. No vertebral body compr ession fractures. No axillary or supraclavicular adenopathy by size criteria. The thyroid is normal in size and there are no incidental findings. Abdomen: Visualized upper abdomen solid organs and bowel loops appear normal in the absence of contr ast. IMPRESSION: 1. No suspicious pulmonary lesions or pulmonary nodules. [address] follow-up recommended. Reviewed by: Amberly Salazar MD on 02/28/2022 11:04 AM PDT Approved by: Amberly Salazar MD on 02/28/2022 11:04 AM PDT Station ID: [id number]
== END 2022-02-28 08:35 | disposition home or self-care (01) ==
LOC: DI 08:34
PROVIDERS: ATTEND Nurse Practitioner Family
DX: Z12.2 Encounter for screening for malignant neoplasm of respiratory organs (principal); Z87.891 Personal history of nicotine dependence

== ENCOUNTER 2022-11-29 07:10 | Outpatient (CLI) | payer MEDICARE, OTHER ==
[2022-11-29 11:53] LABS: BASOPHILS # (AUTO) 0.1 10^3/uL (0.0-0.1); BASOPHILS % (AUTO) 1.2 %; EOSINOPHILS # (AUTO) 0.1 10^3/uL (0.0-0.7); EOSINOPHILS % (AUTO) 2.1 %; HCT - HEMATOCRIT 47.1 % (42.0-52.0); LYMPHOCYTES # (AUTO) 1.4 10^3/uL (1.5-3.5); LYMPHOCYTES % (AUTO) 27.4 %; MEAN CORPUSCULAR HEMOGLOBIN 29.4 pg (27.0-31.0); MEAN CORPUSCULAR VOLUME 86.4 fL (80.0-94.0); MEAN PLATELET VOLUME 10.7 fL (7.4-11.4); MONOCYTES # (AUTO) 0.5 10^3/uL (0.0-1.0); MONOCYTES % (AUTO) 9.4 %; NEUTROPHILS # (AUTO) 3.1 10^3/uL (1.5-6.6); NEUTROPHILS % (AUTO) 59.3 %; PLT - PLATELET COUNT 174 10^3/uL (130-450); RED BLOOD COUNT 5.45 10^6/uL (4.70-6.10); RED CELL DISTRIBUTION WIDTH 12.7 % (12.0-15.0); WHITE BLOOD COUNT 5.2 x10^3/uL (4.8-10.8)
[2022-11-29 12:18] LABS: ALBUMIN/GLOBULIN RATIO 1.2 (1.0-2.2); ALKALINE PHOSPHATASE 92 IU/L (42-121); ALT ALANINE AMINOTRANSFERASE 28 IU/L (10-60); AST ASPARTATE AMINOTRANSFERASE 22 IU/L (10-42); BILIRUBIN,TOTAL 0.9 mg/dL (0.2-1.0); BUN - BLOOD UREA NITROGEN 17 mg/dL (6-20); CALCIUM 8.9 mg/dL (8.5-10.3); CARBON DIOXIDE - CO2 28 mmol/L (21-32); CHLORIDE 104 mmol/L (101-111); CHOL/HDL RATIO 3.5 (<5.0); CHOLESTEROL 156 mg/dL; CREATININE 0.9 mg/dL (0.6-1.2); GFR - MDRD 83 (>89); GLUCOSE 109 mg/dL (70-100); HDL CHOLESTEROL 44 mg/dL; LDL CHOLESTEROL,CALCULATED 88 mg/dL; SODIUM 137 mmol/L (135-145); TOTAL PROTEIN 7.3 g/dL (6.7-8.2); TRIGLYCERIDES 122 mg/dL; VLDL CHOLESTEROL 24 mg/dL
[2022-11-29 12:26] LABS: THYROID STIMULATING HORMONE 2.46 uIU/mL (0.34-5.60)
== END 2022-11-29 07:11 | disposition home or self-care (01) ==
LOC: LAB.N 07:10
PROVIDERS: ATTEND Nurse Practitioner Family
DX: I10 Essential (primary) hypertension (principal); E78.5 Hyperlipidemia, unspecified; Z12.5 Encounter for screening for malignant neoplasm of prostate; Z13.29 Encounter for screening for other suspected endocrine disorder
CPT/HCPCS: 36415; 80053; 80061; 84443; 85025; G0103; 83721; 84153

== ENCOUNTER 2022-12-18 09:11 | Outpatient (CLI) | payer MEDICARE, OTHER ==
--- NOTE | 2022-12-18 15:07 | XRAY Report ---
PROCEDURE: Foot 3 View LT INDICATIONS: PAIN IN LEFT FOOT TECHNIQUE: 3 views of the foot were acquired. COMPARISON: (Radiographs 04/04/2013 FINDINGS: Bones: No fractures or dislocations. No suspicious bony lesions. Mild degenerative changes of the 1st metatarsophalangeal joint and the interphalangeal joints of the toes. Small posterior moderate p lantar calcaneal enthesophytes. Soft tissues: No suspicious soft tissue calcifications or masses. IMPRESSION: No acute osseous abnormality. If symptoms persist or there is continued clinical concern, further tessie luation with MRI or CT may be helpful. Reviewed by: Yaya Anderson MD on 12/18/2022 3:06 PM PDT Approved by: Yaya Anderson MD on 12/18/2022 3:06 PM PDT Station ID: [id number]
== END 2022-12-18 09:12 | disposition home or self-care (01) ==
LOC: DI 09:11
PROVIDERS: ATTEND Registered Nurse
DX: M19.072 Primary osteoarthritis, left ankle and foot (principal)

== ENCOUNTER 2023-04-18 10:35 | Outpatient (CLI) | payer MEDICARE, OTHER ==
[2023-04-18] MEDS ORDERED: ALBUTEROL 1 PUFF INH STA (15:54)
== END 2023-04-18 10:36 | disposition home or self-care (01) ==
LOC: RT 10:35
PROVIDERS: ATTEND Nurse Practitioner Family
DX: R06.00 Dyspnea, unspecified (principal); Z87.891 Personal history of nicotine dependence
CPT/HCPCS: 94060

== ENCOUNTER 2024-01-13 16:24 | Outpatient (CLI) | payer MEDICARE, OTHER ==
--- NOTE | 2024-01-14 14:58 | XRAY Report ---
PROCEDURE: Foot 3+V RT (Weight Bearing) INDICATIONS: RT FOOT PAIN TECHNIQUE: 3 views of the foot were acquired. COMPARISON: None. FINDINGS: Bones: No fractures or dislocations. Plantar calcaneal spur noted. Soft tissues: No radiographically evident soft tissue swelling. Suggestion of calcific tendinitis of the plantar fascia. IMPRESSION: No acute osseous abnormality. Plantar calcaneal spur Reviewed by: Tariq Escalera MD on 01/14/2024 2:57 PM PDT Approved by: Tariq Escalera MD on 01/14/2024 2:57 PM PDT Station ID: [id number]
== END 2024-01-13 16:25 | disposition home or self-care (01) ==
LOC: DI 16:24
PROVIDERS: ATTEND Podiatrist
DX: M77.31 Calcaneal spur, right foot (principal)

== ENCOUNTER 2024-02-21 07:04 | Outpatient (CLI) | payer MEDICARE, OTHER ==
[2024-02-21 12:26] LABS: BASOPHILS % (AUTO) 0.8 %; EOSINOPHILS # (AUTO) 0.1 10^3/uL (0.0-0.7); EOSINOPHILS % (AUTO) 2.7 %; HCT - HEMATOCRIT 45.3 % (42.0-52.0); LYMPHOCYTES # (AUTO) 1.5 10^3/uL (1.5-3.5); LYMPHOCYTES % (AUTO) 29.2 %; MEAN CORPUSCULAR HEMOGLOBIN 28.8 pg (27.0-31.0); MEAN CORPUSCULAR HGB CONC 33.1 g/dL (32.0-36.0); MEAN CORPUSCULAR VOLUME 87.1 fL (80.0-94.0); MEAN PLATELET VOLUME 10.5 fL (7.4-11.4); MONOCYTES # (AUTO) 0.5 10^3/uL (0.0-1.0); MONOCYTES % (AUTO) 9.6 %; NEUTROPHILS % (AUTO) 57.1 %; PLT - PLATELET COUNT 199 10^3/uL (130-450); RED CELL DISTRIBUTION WIDTH 12.5 % (12.0-15.0); WHITE BLOOD COUNT 5.2 x10^3/uL (4.8-10.8)
[2024-02-21 12:27] LABS: ESTIMATED AVERAGE GLUCOSE 120 mg/dL (70-100); HEMOGLOBIN A1c% 5.8 % (4.27-6.07)
[2024-02-21 12:46] LABS: ALBUMIN 4.1 g/dL (3.2-5.5); ALBUMIN/GLOBULIN RATIO 1.6 (1.0-2.2); ALKALINE PHOSPHATASE 88 IU/L (42-121); ALT ALANINE AMINOTRANSFERASE 23 IU/L (10-60); AST ASPARTATE AMINOTRANSFERASE 19 IU/L (10-42); BILIRUBIN,TOTAL 0.6 mg/dL (0.2-1.0); BUN - BLOOD UREA NITROGEN 16 mg/dL (6-20); CALCIUM 9.3 mg/dL (8.5-10.3); CARBON DIOXIDE - CO2 31 mmol/L (21-32); CHLORIDE 103 mmol/L (101-111); CHOL/HDL RATIO 3.1 (<5.0); CHOLESTEROL 116 mg/dL; CREATININE 0.9 mg/dL (0.6-1.3); GFR - MDRD 83 (>89); GLUCOSE 107 mg/dL (74-104); HDL CHOLESTEROL 38 mg/dL; LDL CHOLESTEROL,CALCULATED 56 mg/dL; LDL/HDL RATIO 1.5 (<3.6); POTASSIUM 4.2 mmol/L (3.5-4.5); SODIUM 138 mmol/L (135-145); TOTAL PROTEIN 6.6 g/dL (6.4-8.9); TRIGLYCERIDES 112 mg/dL; VLDL CHOLESTEROL 22 mg/dL
[2024-02-21 13:01] LABS: THYROID STIMULATING HORMONE 3.03 uIU/mL (0.34-5.60)
== END 2024-02-21 07:05 | disposition home or self-care (01) ==
LOC: LAB.N 07:04
PROVIDERS: ATTEND Nurse Practitioner Family
DX: I10 Essential (primary) hypertension (principal); E78.5 Hyperlipidemia, unspecified; Z76.0 Encounter for issue of repeat prescription; R73.03 Prediabetes; N40.1 Benign prostatic hyperplasia with lower urinary tract symptoms
CPT/HCPCS: 36415; 80053; 80061; 83036; 83721; 84153; 84443; 85025